=== PATIENT | male | born 1945 | race Hispanic/Latino ===

== ENCOUNTER 2017-10-21 17:07 | Observation (INO) | payer OTHER ==
[2017-10-21] MEDS ORDERED: NA CHLORIDE 0.9% 1,000 ML ONE (17:53)
[2017-10-21 18:23] LABS: Absolute Lymphocytes (CBC) 1.8 K/uL (0.7-4.9); Absolute Monocytes 0.7 K/uL (0.1-1.3); Absolute Neutrophil 8.2 K/uL (1.8-8.0); Basophils % 0.6 % (0-1.3); Eosinophils % 0.6 % (0-4.4); Hematocrit 41.2 % (39.6-49.0); Lymphocytes % 16.7 % (15.3-44.8); MCH 30.2 pg (27.0-35.0); MPV 10.8 fL (7.6-11.3); Monocytes % 6.2 % (3.3-12.3); RBC Red Blood Cell Count 4.58 M/uL (4.33-5.43)
--- NOTE | 2017-10-21 18:31 | RAD REPORT ---
EXAM DESCRIPTION: RAD - Chest Single View - 10/21/2017 6:16 pm CLINICAL HISTORY: Chest pain. COMPARISON: 09/19/2017 FINDINGS: Portable technique limits examination quality. The lungs are grossly clear. The heart is normal in size. No displaced fractures. IMPRESSION: No acute intrathoracic process suspected.
[2017-10-21 18:44] LABS: Potassium 3.6 mEq/L (3.6-5.0)
[2017-10-21 18:46] LABS: Albumin 3.9 g/dL (3.2-5.5); Bilirubin Total 0.5 mg/dL (0.3-1.2); Protein, Total 7.2 g/dL (6.0-8.3)
[2017-10-21 18:47] LABS: Magnesium 1.6 mg/dL (1.8-2.5)
--- NOTE | 2017-10-21 21:04 | EDPHYS ---
Physician Documentation [facility] Name: Tyrone Browning Age: 72 yrs Sex: Male : 1945 Arrival Date: 10/21/2017 Time: 17:19 Bed 19 Private MD: ED Physician Mayo Vargas HPI: 10/21 17:56 This 72 yrs old Male presents to ER via EMS with complaints of General ps1 Weakness and hypotension. 17:56 Patient and family report a 2 week history of fatigue and lightheadedness. He states ps1 that he is on blood pressure medications Amlodipine 5mg qd and Carvedilol 12.5 bid[address] He spoke with Dr[address] Aguilar his PCP about his symptoms and no medication modifications were made. He additionally states that he has not imprved since then . He was hypotensive on arrival and states that his symptoms of lightheadedness worsened today so he came to get checked out. No reported Headache, CP, tightness, pressure, abd pain, or urinary complaints. Attests to weightloss. . Historical: - Allergies: 19:20 No Known Allergies; ae1 - Home Meds: 19:20 glimepiride 1 mg Oral tab 1 tab once daily [Active]; clonidine HCl 0.3 mg Oral tab ae1 [Active]; citalopram 10 mg tab 1 tab once daily [Active]; losartan 25 mg oral tab [Active]; aspirin 81 mg Oral chew 1 tab once daily [Active]; amlodipine 5 mg tab 1 tab once daily [Active]; carvedilol 12.5 mg oral tab 1 tab every 12 hours [Active]; pravastatin 20 mg oral tab 1 tab once daily [Active]; - PMHx: 19:00 Hypertension; ae1 19:20 Hyperlipidemia; Diabetes - NIDDM; ae1 - Immunization history:: Adult Immunizations Flu vaccine is not up to date. - Social history:: Smoking status: Patient/guardian denies using tobacco. - Ebola Screening: : No symptoms or risks identified at this time. ROS: 17:59 Constitutional: Negative for fever, chills, and weight loss, Eyes: Negative for injury, ps1 pain, redness, and discharge, Cardiovascular: Negative for chest pain, palpitations, and edema, Respiratory: Negative for shortness of breath, cough, wheezing, and pleuritic chest pain, Abdomen/GI: Negative for abdominal pain, nausea, vomiting, diarrhea, and constipation, : Negative for injury, bleeding, discharge, and swelling, MS/Extremity: Negative for injury and deformity, Skin: Negative for injury, rash, and discoloration. 17:59 Neuro: Positive for lightheadedness. Exam: 17:59 Constitutional: This is a well developed, well nourished patient who is awake, alert, ps1 and in no acute distress. Head/Face: Normocephalic, atraumatic. Eyes: Pupils equal round and reactive to light, extra-ocular motions intact. Lids and lashes normal. Conjunctiva and sclera are non-icteric and not injected. Chest/axilla: Normal chest wall appearance and motion. Nontender with no deformity. No lesions are appreciated. Cardiovascular: Regular rate and rhythm. No gallops, murmurs, or rubs. Normal PMI, no JVD. No pulse deficits. Respiratory: Lungs have equal breath sounds bilaterally, clear to auscultation and percussion. No rales, rhonchi or wheezes noted. No increased work of breathing, no retractions or nasal flaring. Abdomen/GI: Soft, non-tender, with normal bowel sounds. No distension or tympany. No guarding or rebound. No evidence of tenderness throughout. MS/ Extremity: Pulses equal, no cyanosis. Neurovascular intact. Full, normal range of motion. Neuro: Awake and alert, GCS 15, oriented to person, place, time, and situation. Cranial nerves II-XII grossly intact. Sensory grossly intact. Vital Signs: 17:19 BP 94 / 63; Pulse 56; Resp 19; Temp 97.6(O); Pulse Ox 95% on R/A; Weight 77.11 kg (R); ae1 Pain 0/10; 18:03 BP 80 / 62 (man/); Pulse 51; Resp 14; Pulse Ox 100% on R/A; ae1 18:52 BP 105 / 58; Pulse 53; Resp 13; Pulse Ox 95% on R/A; ae1 19:21 BP 107 / 61; Pulse 57; Resp 15; Pulse Ox 99% on R/A; ae1 20:14 BP 112 / 57; Pulse 52; Resp 18; Pulse Ox 95% on R/A; Pain 0/10; ea 21:00 BP 145 / 70; Pulse 56; Resp 18; Pulse Ox 99% on R/A; Pain 0/10; ea 22:55 BP 122 / 75; Pulse 56; Resp 18; Pulse Ox 98% ; Pain 0/10; ea 23:30 BP 120 / 68; Pulse 56; Resp 18; Temp 97.8(O); Pulse Ox 99% ; Pain 0/10; ea MDM: 17:47 Patient medically screened. ps1 10/21 17:51 Order name: BNP; Complete Time: 19:10 ps1 10/21 17:51 Order name: CBC with Diff; Complete Time: 18:46 ps1 10/21 17:51 Order name: Magnesium; Complete Time: 19:10 ps1 10/21 17:51 Order name: Troponin (emerg Dept Use Only); Complete Time: 19:10 ps1 10/21 17:51 Order name: CMP; Complete Time: 19:10 ps1 10/21 18:00 Order name: TSH; Complete Time: 19:45 ps1 10/21 17:51 Order name: XRAY Chest (1 view); Complete [facility]: 18[facility] 10[facility] 21:00 Order name: Urine Dipstick--Ancillary (enter results); Complete Time: 22:39 2 10/21 21:00 Order name: Urine Microscopic Only; Complete Time: 22:39 rg2 10/21 21:08 Order name: Basic Metabolic Panel EDMS 10/21 21:08 Order name: Basic Metabolic Panel EDMS 10/21 21:08 Order name: CBC with Automated Diff EDMS 10/21 21:08 Order name: CBC with Automated Diff EDMS 04 17:51 Order name: EKG; Complete Time: 17:52 ps1 10/21 17:51 Order name: Cardiac monitoring; Complete Time: 17:59 ps1 10/21 17:51 Order name: EKG - Nurse/Tech; Complete Time: 19:05 ps1 04 17:51 Order name: IV Saline Lock; Complete Time: 17:59 ps1 04 17:51 Order name: Labs collected and sent; Complete Time: 17:59 ps1 04 17:51 Order name: O2 Per Protocol; Complete Time: 18:00 ps1 10/21 17:51 Order name: O2 Sat Monitoring; Complete Time: 18:02 ps1 10/21 17:51 Order name: Urine Dipstick-Ancillary (obtain specimen); Complete Time: 20:58 ps1 10/21 21:08 Order name: Regular EDMS Administered Medications: 18:00 Drug: NS 0.9% 1000 ml Route: IV; Rate: 1 bolus; Site: right antecubital; ae1 20:00 Follow up: Response: No adverse reaction; IV Status: Completed infusion; IV Intake: ea 1000ml Point of Care Testing: Blood Glucose: 18:03 Blood Glucose: 126 mg/dL; ae1 Ranges: Critical Glucose Levels:Adult <50 mg/dl or >400 mg/dl <40 mg/dl or >180 mg/dl Disposition: 10/21/17 21:03 Hospitalization ordered by Julio Aguilar for Inpatient Admission. Preliminary diagnosis are Hypotension, Acute Kidney Injury, Hypomagnesemia. - Bed requested for Telemetry/MedSurg (Inpatient). - Status is Inpatient Admission. ea - Condition is Stable. - Problem is new. - Symptoms have improved. UTI on Admission? No Signatures: Dispatcher [facility] Marta Carias RN RN kl Elliott, Andrea, RN RN ae1 Octavia Wilkins RN RN ea Singer, Phillip, MD MD ps1 Corrections: (The following items were deleted from the chart) 22:36 21:03 Hospitalization Ordered by A Lauren LOW for Inpatient Admission. Preliminary diagnosis is Hypotension; Acute Kidney Injury; Hypomagnesemia. Bed requested for Telemetry/MedSurg (Inpatient). Status is Inpatient Admission. Condition is Stable. Problem is new. Symptoms have improved. UTI on Admission? No. ps1 23:57 22:36 10/21/2017 21:03 Hospitalization Ordered by A Lauren LOW for Inpatient Admission. ea Preliminary diagnosis is Hypotension; Acute Kidney Injury; Hypomagnesemia. Bed requested for Telemetry/MedSurg (Inpatient). Status is Inpatient Admission. Condition is Stable. Problem is new. Symptoms have improved. UTI on Admission? No. kl
--- NOTE | 2017-10-21 21:04 | ER ---
Nurse's Notes [facility] Name: Tyrone Browning Age: 72 yrs Sex: Male : 1945 Arrival Date: 10/21/2017 Time: 17:19 Bed 19 Private MD: Diagnosis: Hypotension;Acute Kidney Injury;Hypomagnesemia Presentation: 10/21 17:21 Presenting complaint: EMS states: Patient reports generalized weakness intermittently ae1 over the last month. Transition of care: patient was not received from another setting of care. Onset of symptoms was September 17, 2017. Risk Assessment: Do you want to hurt yourself or someone else? Patient reports no desire to harm self or others. Initial Sepsis Screen: Does the patient meet any 2 criteria? No. Patient's initial sepsis screen is negative. Does the patient have a suspected source of infection? No. Patient's initial sepsis screen is negative. Care prior to arrival: EMS states upon arrival patient was hypotensive 70s over 60s and then final BP was 120s over 80s in Trendelenburg. 17:21 Method Of Arrival: EMS: [facility] ae1 17:21 Acuity: RITIKA 3 ae1 Historical: - Allergies: 19:20 No Known Allergies; ae1 - Home Meds: 19:20 glimepiride 1 mg Oral tab 1 tab once daily [Active]; clonidine HCl 0.3 mg Oral tab ae1 [Active]; citalopram 10 mg tab 1 tab once daily [Active]; losartan 25 mg oral tab [Active]; aspirin 81 mg Oral chew 1 tab once daily [Active]; amlodipine 5 mg tab 1 tab once daily [Active]; carvedilol 12.5 mg oral tab 1 tab every 12 hours [Active]; pravastatin 20 mg oral tab 1 tab once daily [Active]; - PMHx: 19:00 Hypertension; ae1 19:20 Hyperlipidemia; Diabetes - NIDDM; ae1 - Immunization history:: Adult Immunizations Flu vaccine is not up to date. - Social history:: Smoking status: Patient/guardian denies using tobacco. - Ebola Screening: : No symptoms or risks identified at this time. Screenin:02 Abuse screen: Denies threats or abuse. Nutritional screening: No deficits noted. ae1 Tuberculosis screening: No symptoms or risk factors identified. Fall Risk No fall in past 12 months (0 pts). Secondary diagnosis (15 points) hypotension . IV access (20 points). Ambulatory Aid- None/Bed Rest/Nurse Assist (0 pts). Gait- Weak (10 pts.). Mental Status- Oriented to own ability (0 pts). Assessment: 18:52 General: Appears in no apparent distress. comfortable, Behavior is calm, cooperative. ae1 Pain: Denies pain. Neuro: Level of Consciousness is awake, alert, obeys commands, Oriented to person, place, time, situation. Cardiovascular: Heart tones S1 S2 present skin is cool and dry. Respiratory: Airway is patent Respiratory effort is even, unlabored, Respiratory pattern is regular, symmetrical, Breath sounds are clear bilaterally. GI: No signs and/or symptoms were reported involving the gastrointestinal system. : No signs and/or symptoms were reported regarding the genitourinary system. EENT: No signs and/or symptoms were reported regarding the EENT system. Derm: Skin is pale. Musculoskeletal: Reports Generalized weakness. 19:10 General: Appears comfortable, Behavior is calm, cooperative. Pain: Denies pain. Neuro: ea Level of Consciousness is awake, alert, obeys commands, Oriented to person, place, time, situation. Cardiovascular: Heart tones S1 S2 present Patient's skin is warm and dry. Respiratory: Airway is patent Respiratory effort is even, unlabored, Respiratory pattern is regular, symmetrical, Breath sounds are clear bilaterally. GI: No signs and/or symptoms were reported involving the gastrointestinal system. : No signs and/or symptoms were reported regarding the genitourinary system. EENT: No signs and/or symptoms were reported regarding the EENT system. Derm: Skin is pink, warm \T\ dry. Musculoskeletal: Reports generalized weakness. 20:15 Reassessment: Patient and/or family updated on plan of care and expected duration. Pain ea level reassessed. Patient is alert, oriented x 3, equal unlabored respirations, skin warm/dry/pink. Patient states symptoms have improved. 21:50 Reassessment: Patient and/or family updated on plan of care and expected duration. Pain ea level reassessed. Patient is alert, oriented x 3, equal unlabored respirations, skin warm/dry/pink. 22:43 Reassessment: Patient and/or family updated on plan of care and expected duration. Pain ea level reassessed. Patient is alert, oriented x 3, equal unlabored respirations, skin warm/dry/pink. 23:22 Reassessment: Patient and/or family updated on plan of care and expected duration. Pain ea level reassessed. Patient is alert, oriented x 3, equal unlabored respirations, skin warm/dry/pink. Report called to receiving nurse on fourth floor. Patient states symptoms have improved. 23:40 Reassessment: Patient and/or family updated on plan of care and expected duration. Pain ea level reassessed. Patient is alert, oriented x 3, equal unlabored respirations, skin warm/dry/pink. Patient states symptoms have improved. Vital Signs: 17:19 BP 94 / 63; Pulse 56; Resp 19; Temp 97.6(O); Pulse Ox 95% on R/A; Weight 77.11 kg (R); ae1 Pain 0/10; 18:03 BP 80 / 62 (man/); Pulse 51; Resp 14; Pulse Ox 100% on R/A; ae1 18:52 BP 105 / 58; Pulse 53; Resp 13; Pulse Ox 95% on R/A; ae1 19:21 BP 107 / 61; Pulse 57; Resp 15; Pulse Ox 99% on R/A; ae1 20:14 BP 112 / 57; Pulse 52; Resp 18; Pulse Ox 95% on R/A; Pain 0/10; ea 21:00 BP 145 / 70; Pulse 56; Resp 18; Pulse Ox 99% on R/A; Pain 0/10; ea 22:55 BP 122 / 75; Pulse 56; Resp 18; Pulse Ox 98% ; Pain 0/10; ea 23:30 BP 120 / 68; Pulse 56; Resp 18; Temp 97.8(O); Pulse Ox 99% ; Pain 0/10; ea ED Course: 17:19 Patient arrived in ED. ae1 17:26 Triage completed. ae1 17:28 Mayo Vargas MD is Attending Physician. ps1 17:36 Perry Monzon RN is Primary Nurse. ae1 18:01 Inserted saline lock: 20 gauge in right antecubital area, using aseptic technique. ae1 Blood collected. 18:07 Arm band placed on right wrist. ae1 18:17 XRAY Chest (1 view) In Process Unspecified. EDMS 19:10 Patient has correct armband on for positive identification. Bed in low position. Call ea light in reach. Side rails up X2. 20:23 Primary Nurse role handed off by Perry Monzon RN rg2 20:31 Octavia Wilkins, RN is Primary Nurse. ea 21:00 Served as a diesel motor mechanic during rectal exam. aa1 21:03 Julio Aguilar MD is Hospitalizing Provider. ps1 23:23 Patient admitted, IV remains in place. ea Administered Medications: 18:00 Drug: NS 0.9% 1000 ml Route: IV; Rate: 1 bolus; Site: right antecubital; ae1 20:00 Follow up: Response: No adverse reaction; IV Status: Completed infusion; IV Intake: ea 1000ml Point of Care Testing: Blood Glucose: 18:03 Blood Glucose: 126 mg/dL; ae1 Ranges: Intake: 20:00 IV: 1000ml; Total: 1000ml. ea Outcome: 21:03 Decision to Hospitalize by Provider. ps1 21:30 Instructed on the need for admit. ea 23:22 Admitted to Med/surg accompanied by tech, via wheelchair, room 425, Report called to ea Receiving nurse on fourth floor. 23:22 Condition: stable 23:57 Patient left the ED. ea Signatures: Dispatcher [employer] EDMS David Mittal rg2 Flaca Watson RN RN aa1 Perry Monzon, RN RN ae1 Octavia Wilkins, RN Mayo Lovell ea, MD MD ps1
[2017-10-21] MEDS ORDERED: ACETAMINOPHEN 500 MG TAB PO PRN (21:06)
[2017-10-21 21:27] LABS: Urine Bacteria <20 /HPF (NONE SEEN); Urine Culture Reflex Order NOT NEEDED; Urine RBC <5 /HPF (NONE SEEN)
[2017-10-21 21:28] LABS: Urine Blood NEGATIVE (NEG); Urine Glucose NEGATIVE (NEG); Urine Protein NEGATIVE (NEG); Urine Specific Gravity <1.005 (1.005-1.030)
[2017-10-22] MEDS: NA CHLORIDE 0.9% 1,000 ML IV SCH ×2 (00:03→09:20)
[2017-10-22 00:55] VITALS: BMI 29.4
[2017-10-22 06:13] LABS: Potassium 3.1 mEq/L (3.6-5.0)
[2017-10-22 06:37] LABS: Absolute Monocytes 0.7 K/uL (0.1-1.3); Absolute Neutrophil 4.5 K/uL (1.8-8.0); Basophils % 0.6 % (0-1.3); Eosinophils % 3.2 % (0-4.4); Hematocrit 36.6 % (39.6-49.0); MCH 30.6 pg (27.0-35.0); MCV 89.3 fL (80-100); MPV 10.9 fL (7.6-11.3); Monocytes % 8.4 % (3.3-12.3)
[2017-10-22] MEDS ORDERED: MAGNESIUM SULFATE 1 gm IVPB 1 GM/100 ML BAG IV ONE (09:00)
[2017-10-22] MEDS ORDERED: ASPIRIN 81 MG CHEWABLE TABLET PO SCH (09:00)
[2017-10-22] MEDS ORDERED: CITALOPRAM 10 MG TABLET PO SCH (09:00)
[2017-10-22] MEDS ORDERED: POTASSIUM CL SA 10 MEQ TAB PO ONE ×2 (09:00→16:00)
--- NOTE | 2017-10-22 13:44 | EKG ---
Test Date: 2017-10-21 Test Time: 18:58:20 Railway Signal Operator: KEILA MEASUREMENT RESULTS: Intervals: Rate: 54 PA: 166 QRSD: 88 QT: 546 QTc: 517 [place]: P: 38 PA: 166 QRS: 37 T: 61 INTERPRETIVE STATEMENTS: Sinus bradycardia Inferior infarct, age undetermined Prolonged QT Abnormal ECG No previous ECG available for comparison Electronically Signed On 10-22-17 13:41:04 CDT by Chris Baez
[2017-10-22] MEDS ORDERED: CLONIDINE HCL 0.3 MG TAB PO ONE (19:00)
[2017-10-22 19:26] VITALS: BP 188/86
[2017-10-22 20:57] VITALS: TEMP 98.1
[2017-10-22] MEDS ORDERED: ATORVASTATIN 10 MG TAB PO SCH (21:00)
[2017-10-22 21:05] VITALS: O2SAT 96
--- NOTE | 2017-10-23 02:14 | HP ---
Date of Admission: 10/22/2017 Chief Complaint: Feeling weak and dizzy. History Of Present Illness: A 72-year-old male patient, came into emergency room as he was feeling weak and dizzy yesterday. Denies any vomiting, diarrhea. No blood in stool or blood in urine. No fever, chills. No abdominal pain. No chest pain. No shortness of breath. He has been working outside and he may not be drinking enough water. After he came into the emergency room, he was evaluated. The patient had acute volume injury with volume depletion. His stool guaiac test done in emergency room was negative. He was admitted to the hospital, 1 L of IV fluid was given in the emergency room , and then we continued to give him IV fluid hydration. This morning when I saw him, he was like his normal usual self. I saw him last week for routine office visit followup and today he was just like the way he was last week. His was with him at bedside. I have not made any changes in his medication. Last week when I saw him, he had blood work done last week on 10/16/2017 and his renal function test was normal. His LDL was slightly high around 104 or so and he takes pravastatin 20 mg daily and I have informed him today that he should increase the dose of pravastatin from 20 mg to 40 mg daily, but all his antihypertensive medication we have not changed in a long time. After he came into the ER, he was admitted to the hospital and he has not had any new complaints this morning. When I saw him last week, I did explain him importance of seeing his lmft, Dr. Brown, regularly and he told me at that time that he will think about it but he was not sure if he would do it or not and today I did bring it to his attention and his 's attention that he should see his lmft at least once a year and now he is agreeable to do so and he will schedule his appointment to see his lmft. Allergies: NO KNOWN ALLERGIES. Review of Systems: Constitutional: As mentioned above. All other systems reviewed and negative. Medications: Amlodipine 5 mg daily; aspirin 81 mg daily; carvedilol 12.5 mg 2 times a day; clonidine 0.3 mg 3 times a day; losartan 25 mg daily; citalopram 10 mg daily; glimepiride 1 mg daily; Hemocyte 1 tablet daily; pravastatin, he was on 20 mg daily and now he will increase dose to 40 mg daily. Past Medical History: Significant for hypertension, type 2 diabetes mellitus, hyperlipidemia, coronary artery disease, sleep apnea, benign prostatic hypertrophy. Past Surgical History: Significant for appendectomy. Social History: Negative for smoking or alcohol use. Family History: Significant for heart disease, hypertension, and diabetes. Physical Examination: Vital Signs: His last temperature this morning 97.1, pulse 50, respiratory rate 16, blood pressure 110/56, oxygen saturation 92%. Height 5 feet 3 inches. Weight 166 pounds. General: Awake, alert, oriented, not in distress. HEENT: Head atraumatic, normocephalic. Conjunctivae nonerythematous. Sclerae white. Mouth, no thrush or edema noted. Ears/Nose, no mass, lesion, discharge noted. Neck: Supple. No JVD, lymph nodes, bruit, thyromegaly noted. Lungs: Bilateral good equal air entry. Clear to auscultation. No rhonchi. No rales. Heart: Normal heart sounds, no murmur or gallop. Abdomen: Soft, bowel sounds normal. No guarding, rigidity, tenderness, mass, hepatosplenomegaly, distention, or bruit noted. Extremities: No leg edema. No calf tenderness. Skin: No rash, ulcer, cellulitis. Lymphatics: No lymph node enlargement in neck, supraclavicular, infraclavicular region. Neuro: No focal neurological deficit. Chest: Unremarkable. External Genitalia: Deferred. Rectal: Deferred. Laboratory Data: His creatinine was 0.68 on 10/16/2017. Yesterday, white count 10.8, hemoglobin 13.8, and platelets 251. This morning, white count 8.5, hemoglobin 12.5, platelets 205. Yesterday, sodium 132, potassium 3.6, chloride 97, bicarb 27, BUN 26, creatinine 1.57, glucose 135. This morning, BUN 24, creatinine 0.89, sodium 138, potassium 3.1. Liver function tests unremarkable. Yesterday, magnesium was 1.6. Troponin less than 0.03. TSH 2.55. Chest x-ray, no acute intrathoracic changes. Hospital Course: After I saw the patient, echocardiogram was ordered which was done, result pending. We will follow up on the result on outpatient basis. This evening, his blood pressure was elevated with systolic blood pressure anywhere between 160-170 range, so clonidine 0.3 mg was ordered p.o. x1 dose and subsequently the patient was discharged to go home with following discharge medications and instructions; 1. Continue all prior home medications. 2. Check blood pressure 3 times a day recorded and bring machine and readings to my office next week at the time of followup and the patient to follow up at my office in 1 week. 3. The patient to follow up with his lmft, Dr. Brown, in 1 to 2 weeks. 4. The patient to drink 50 to 60 ounces of water a day and avoid any outside heat exposure during this hot weather and all these instructions were explained to him by myself this morning in presence of his . The patient to continue all his prior home medications. Final Diagnoses: 1. Acute kidney injury. 2. Volume depletion. 3. Hypokalemia. 4. Hypomagnesemia. 5. Coronary artery disease. 6. Hypertension. 7. Hyperlipidemia. 8. Type 2 diabetes mellitus. 9. Sleep apnea. YAZMIN/MODL Voice ID: [id number]
--- NOTE | 2017-10-23 08:19 | ECHO ---
HEIGHT: 5 ft 3 in WEIGHT: 166 lb 0 oz DATE OF STUDY: 10/22/[address]: Elkin Aguilar MD 2-DIMENSIONAL: YES M.MODE: YES DOPPLER: YES COLOR FLOW: YES TDS: NO PORTABLE: NO DEFINITY: NO BUBBLE STUDY: NO DIAGNOSIS: CORONARY ARTERY DISEASE CARDIAC HISTORY: CATHERIZATION: NO SURGERY: NO PROSTHETIC VALVE: NO PACEMAKER: NO MEASUREMENTS (cm) DIASTOLIC (NORMALS) SYSTOLIC (NORMALS) IVSd 1.2 (0.6-1.2) LA Diam 3.5 (1.9-4.0) LVEF 69% LVIDd 4.5 (3.5-5.7) LVIDs 2.8 (2.0-3.5) %FS 39% LVPWd 1.4 (0.6-1.2) Ao Diam 2.7 (2.0-3.7) 2 DIMENSIONAL ASSESSMENT: RIGHT ATRIUM: NORMAL LEFT ATRIUM: NORMAL RIGHT VENTRICLE: NORMAL LEFT VENTRICLE: LEFT VENTRICULAR HYPERTROPHY TRICUSPID VALVE: NORMAL MITRAL VALVE: NORMAL PULMONIC VALVE: NORMAL AORTIC VALVE: NORMAL PERICARDIAL EFFUSION: NONE AORTIC ROOT: NORMAL LEFT VENTRICULAR WALL MOTION: DOPPLER/COLOR FLOW: PHYSIOLOGIC TRICUSPID REGURGITATION. NORMAL RIGHT VENTRICULAR SYSTOLIC PRESSURE. IMPAIRED LEFT VENTRICULAR RELAXATION. COMMENTS: NORMAL LEFT VENTRICULAR EJECTION FRACTION. LEFT VENTRICULAR HYPERTROPHY. IMPAIRED LEFT VENTRICULAR RELAXATION. TECHNOLOGIST: Yudelka PEREZ
== END 2017-10-22 21:00 | disposition home or self-care (01) ==
LOC: ER 17:07 → SUPCPDRO 17:07 → 4TH 22:45 → INTOOBSV 22:45
PROVIDERS: ADMIT Internal Medicine; ATTEND Internal Medicine
DX: N17.9 Acute kidney failure, unspecified (principal); E86.9 Volume depletion, unspecified; E87.6 Hypokalemia; E83.42 Hypomagnesemia; G47.30 Sleep apnea, unspecified; I10 Essential (primary) hypertension; E11.9 Type 2 diabetes mellitus without complications; E78.5 Hyperlipidemia, unspecified; I25.10 Atherosclerotic heart disease of native coronary artery without angina pectoris; N40.0 Benign prostatic hyperplasia without lower urinary tract symptoms; Z79.82 Long term (current) use of aspirin
CPT/HCPCS: 36415; 71045; 80048; 80053; 81003; 81015; 82962; 83735; 83880; 84132; 84443; 84484; 85025; 93005; 93306; 96360; 96361; 97163; 99285; G0378; J3475; J7030

== ENCOUNTER 2018-05-12 11:36 | Observation (INO) | payer OTHER ==
--- OUTSIDE RECORDS SUMMARY | 2018-05-12 11:38 | XMS REPORT ---
:1945 [facility] Address [address] [place] [address] Dr. Polk [address] [place] [id number] Care Team Providers Name Role Phone Unavailable Unavailable Unavailable Problems This patient has no known problems. Allergies, Adverse Reactions, Alerts This patient has no known allergies or adverse reactions. Medications This patient has no known medications.
--- NOTE | 2018-05-12 12:07 | RAD REPORT ---
EXAM DESCRIPTION: RAD - Chest Single View - 05/12/2018 12:02 pm CLINICAL HISTORY: Weakness, shortness of breath COMPARISON: October 21 TECHNIQUE: AP portable chest image was obtained 1145 hours . FINDINGS: Lung volumes are low. Perihilar markings are within normal limits. Lung markings are not s ubstantially different from comparison. No peripheral consolidation or mass. Heart and vasculature are normal. No measurable pleural effusion and no pneumothorax. No acute bony abnormality seen. No acute aortic findings suspected. IMPRESSION: No acute cardiopulmonary process. Chest findings are not substantially different in comparison.
[2018-05-12 12:26] LABS: Absolute Lymphocytes (CBC) 1.8 K/uL (0.7-4.9); Absolute Neutrophil 6.6 K/uL (1.8-8.0); Basophils % 0.4 % (0-1.3); Eosinophils % 0.1 % (0-4.4); Hematocrit 42.7 % (39.6-49.0); Lymphocytes % 18.7 % (15.3-44.8); MPV 10.8 fL (7.6-11.3); Monocytes % 10.7 % (3.3-12.3); RBC Red Blood Cell Count 4.75 M/uL (4.33-5.43)
[2018-05-12 12:28] LABS: Protime INR 1.29
[2018-05-12 12:41] LABS: Albumin 3.2 g/dL (3.4-5.0); Bilirubin Direct 0.2 mg/dL (0-0.2); Bilirubin Total 0.5 mg/dL (0.2-1.0); Magnesium 2.2 mg/dL (1.8-2.4); Potassium 3.5 mmol/L (3.5-5.1); Protein, Total 7.3 g/dL (6.4-8.2); Troponin (Emerg Dept Use Only) 0.09 ng/mL (0.0-0.045)
--- NOTE | 2018-05-12 13:33 | ER ---
Nurse's Notes [facility] Name: Tyrone Browning Age: 73 yrs Sex: Male : 1945 Arrival Date: 05/12/2018 Time: 11:38 Bed 2 Private MD: Diagnosis: Hypotension Presentation: 05/12 11:38 Presenting complaint: EMS states: Pt c/o generalized weakness since this morning, BP on ph scene 70s/40s, hx of HTN, reports taking medications this morning, also dx w/ shingles approx 3 days ago at [facility] and sent home w/ 3 prescriptions. Transition of care: patient was not received from another setting of care. Onset of symptoms was May 12, 2018. Risk Assessment: Do you want to hurt yourself or someone else? Patient reports no desire to harm self or others. Initial Sepsis Screen: Does the patient meet any 2 criteria? Systolic BP < 90 mmHg. Mean Arterial Pressure (MAP) < 65. Yes Does the patient have a suspected source of infection? Yes: Skin breakdown/wound. Care prior to arrival: Medication(s) given: Normal saline infusion, 150 mL IV initiated. 20 GA, in the left antecubital area, Glucose check: 276. 11:38 Method Of Arrival: EMS: [facility] ph 11:38 Acuity: RITIKA 2 ph Historical: - Allergies: 11:48 No Known Drug Allergies; ph - Home Meds: 11:48 amlodipine 5 mg tab 1 tab once daily [Active]; ph 11:58 aspirin 81 mg Oral chew 1 tab once daily [Active]; clonidine HCl 0.3 mg Oral tab 1 tab ph three times a day [Active]; carvedilol 12.5 mg Oral tab 1 tab every 12 hours [Active]; losartan 25 mg Oral tab 1 tab once daily [Active]; glimepiride 1 mg Oral tab 1 tab once daily [Active]; citalopram 10 mg tab 1 tab once daily [Active]; pravastatin 40 mg oral tab [Active]; terbinafine HCl 250 mg oral tab 1 tab once daily [Active]; valacyclovir 1 gram Oral tab 1 tab 3 times per day [Active]; - PMHx: 11:48 Diabetes - NIDDM; Hyperlipidemia; Hypertension; ph - Immunization history:: Adult Immunizations unknown. - Social history:: Smoking status: Patient/guardian denies using tobacco. - Ebola Screening: : No symptoms or risks identified at this time. Screenin:06 Abuse screen: Denies threats or abuse. Denies injuries from another. Nutritional ph screening: No deficits noted. Tuberculosis screening: No symptoms or risk factors identified. Fall Risk No fall in past 12 months (0 pts). No secondary diagnosis (0 pts). IV access (20 points). Ambulatory Aid- None/Bed Rest/Nurse Assist (0 pts). Gait- Weak (10 pts.). Mental Status- Oriented to own ability (0 pts). Total Foster Fall Scale indicates Low Risk Score (25-44 pts). Fall prevention measures have been instituted. Side Rails Up X 2 Frequent Obs/Assesments occuring Family Present and informed to notify staff if they need to leave bedside As available Patient and Family Educated on Fall Prevention Program and strategies. Assessment: 12:00 General: Appears in no apparent distress. uncomfortable, well groomed, Behavior is ph cooperative, drowsy, quiet, Denies fever, feeling ill. Pain: Denies pain. Neuro: Level of Consciousness is awake, obeys commands, lethargic, Oriented to person, place, time, situation, Reports weakness in "all over" Denies blurred vision difficulty swallowing, headache. Cardiovascular: Reports fatigue, lightheadedness, Denies chest pain, nausea, shortness of breath, Capillary refill < 3 seconds in bilateral fingers Patient's skin is warm and dry. Respiratory: Airway is patent Respiratory effort is even, unlabored, Respiratory pattern is regular, symmetrical. GI: No signs and/or symptoms were reported involving the gastrointestinal system. Patient currently denies abdominal pain, diarrhea, nausea, vomiting. EENT: swelling noted to nati eyelids. Derm: Skin is healthy with good turgor, Skin is pink, warm \\T\\ dry. Rash noted that is red, vesicular, on forehead, nose and left eye pt recently dx w/ shingles. Musculoskeletal: Circulation, motion, and sensation intact. Range of motion: intact in all extremities. 12:05 Reassessment: Patient appears in no apparent distress at this time. Pt noted to be ph taking BP medications x 4, states that pt took all of his usual medications this morning. 13:30 Reassessment: Patient appears in no apparent distress at this time. No changes from ph previously documented assessment. Patient and/or family updated on plan of care and expected duration. Pain level reassessed. 14:32 Reassessment: Patient appears in no apparent distress at this time. No changes from ph previously documented assessment. Patient and/or family updated on plan of care and expected duration. Pain level reassessed. Patient is alert, oriented x 3, equal unlabored respirations, skin warm/dry/pink. at bedside, awaiting room assignment. 15:35 Reassessment: Patient appears in no apparent distress at this time. Patient and/or ph family updated on plan of care and expected duration. Pain level reassessed. Pt appears to be sleeping w/ eyes closed and equal unlabored respirations, at bedside requesting to speak to ERP, states, " He is just so sleepy and that isn't normal for him." VSS,CT head ordered by ERP. 16:05 Reassessment: Patient appears in no apparent distress at this time. Patient and/or ph family updated on plan of care and expected duration. Pain level reassessed. Dr Mayo at bedside to speak w/ pt, pt responding appropriately to providers questions, oriented x 4. 17:00 Reassessment: Patient appears in no apparent distress at this time. Patient and/or ph family updated on plan of care and expected duration. Pain level reassessed. 17:50 Reassessment: Patient appears in no apparent distress at this time. Patient and/or ph family updated on plan of care and expected duration. Pain level reassessed. Patient is alert, oriented x 3, equal unlabored respirations, skin warm/dry/pink. Report called to NADIA Yoon, pt taken to 4th floor via stretcher. Vital Signs: 11:43 BP 83 / 59; Pulse 53; Resp 18; Temp 97.1(TE); Pulse Ox 97% on R/A; Weight 77.11 kg; ph Height 5 ft. 3 in. (160.02 cm); Pain 0/10; 12:00 BP 117 / 70; Pulse 57; ph 12:30 BP 113 / 64; Pulse 49; Resp 16; Pulse Ox 97% on R/A; ph 12:58 BP 117 / 63; Pulse 51; Resp 18; Pulse Ox 97% ; ph 13:30 BP 111 / 62; Pulse 53; Resp 18; Pulse Ox 98% on R/A; ph 14:00 BP 115 / 68; Pulse 55; Resp 16; Pulse Ox 97% on R/A; ph 14:29 BP 100 / 67; Pulse 54; Resp 18; Pulse Ox 96% on R/A; ph 15:48 BP 117 / 65; Pulse 54; Resp 18; Pulse Ox 98% on R/A; ph 17:09 BP 136 / 71; Pulse 54; Resp 12; Temp 97.9; Pulse Ox 94% on R/A; ph 17:55 BP 127 / 67; Pulse 56; Resp 18; Temp 97.5; Pulse Ox 95% on R/A; ph 11:43 Body Mass Index 30.11 (77.11 kg, 160.02 cm) ph ED Course: 11:38 Patient arrived in ED. ph 11:38 Lory Lovelace MD is Attending Physician. ma2 11:43 Triage completed. ph 11:43 Lonny Gonzales PA is PHCP. jr8 11:43 Morgan Valencia MD is Attending Physician. jr8 11:59 Gail Santiago, NADIA is Primary Nurse. ph 12:01 EKG done, by manager technical training. reviewed by Lonny JOYA. at1 12:04 XRAY Chest (1 view) In Process Unspecified. EDMS 12:04 Arm band placed on. ph 12:06 Patient has correct armband on for positive identification. Bed in low position. Call ph light in reach. Side rails up X2. nurse monitoring on. Pulse ox on. NIBP on. Warm blanket given. 12:11 Maintain EMS IV. Dressing intact. Good blood return noted. Site clean \\T\\ dry. Gauge \\T\\ ph site: 20 LAC. 12:43 Notified ED physician of a critical lab result(s). lac 2.3 Notified Nurse Practitioner ss and/or Physician Teasel Setter of a critical lab result(s), lac 2.3. 13:33 Shey Mayo MD is Hospitalizing Provider. jr8 16:31 CT completed. Patient tolerated procedure well. Patient moved to CT via stretcher. ky Patient moved back from CT. 17:48 No provider procedures requiring assistance completed. Patient admitted, IV remains in ph place. Administered Medications: 12:00 Drug: NS 0.9% 1000 ml Route: IV; Rate: 1000 ml; Site: left antecubital; ph 12:45 Follow up: Response: No adverse reaction; Blood pressure is elevated; IV Status: ph Completed infusion Outcome: 13:33 Decision to Hospitalize by Provider. carmelina 17:49 Admitted to Tele family with patient, via stretcher, room 431, with chart, Report ph called to Karrie ZUNIGA 17:49 Condition: stable 17:49 Instructed on the need for admit. 17:56 Patient left the ED. ph Signatures: Dispatcher [employer] Deysi Moreno RN RN Lonny Gonzales PA PA jr8 Priti Ramirez, registry rn EKG Tat1 Gail Santiago RN RN Derik Justice Mohammad, MD MD ma2
--- NOTE | 2018-05-12 13:34 | EDPHYS ---
Physician Documentation [facility] Name: Tyrone Browning Age: 73 yrs Sex: Male : 1945 Arrival Date: 05/12/2018 Time: 11:38 Bed 2 Private MD: ED Physician Morgan Valencia HPI: 05/12 13:33 This 73 yrs old Male presents to ER via EMS with complaints of General jr8 Weakness. 13:33 Onset: The symptoms/episode began/occurred acutely, today. Associated signs and jr8 symptoms: The patient has no apparent associated signs or symptoms. Modifying factors: The patient symptoms are alleviated by nothing, the patient symptoms are aggravated by activity. The patient has not experienced similar symptoms in the past. The patient has been recently seen by a physician: with different complaint(s). Historical: - Allergies: 11:48 No Known Drug Allergies; ph - Home Meds: 11:48 amlodipine 5 mg tab 1 tab once daily [Active]; ph 11:58 aspirin 81 mg Oral chew 1 tab once daily [Active]; clonidine HCl 0.3 mg Oral tab 1 tab ph three times a day [Active]; carvedilol 12.5 mg Oral tab 1 tab every 12 hours [Active]; losartan 25 mg Oral tab 1 tab once daily [Active]; glimepiride 1 mg Oral tab 1 tab once daily [Active]; citalopram 10 mg tab 1 tab once daily [Active]; pravastatin 40 mg oral tab [Active]; terbinafine HCl 250 mg oral tab 1 tab once daily [Active]; valacyclovir 1 gram Oral tab 1 tab 3 times per day [Active]; - PMHx: 11:48 Diabetes - NIDDM; Hyperlipidemia; Hypertension; ph - Immunization history:: Adult Immunizations unknown. - Social history:: Smoking status: Patient/guardian denies using tobacco. - Ebola Screening: : No symptoms or risks identified at this time. ROS: 13:33 Eyes: Negative for injury, pain, redness, and discharge, ENT: Negative for injury, jr8 pain, and discharge, Neck: Negative for injury, pain, and swelling, Cardiovascular: Negative for chest pain, palpitations, and edema, Respiratory: Negative for shortness of breath, cough, wheezing, and pleuritic chest pain, Abdomen/GI: Negative for abdominal pain, nausea, vomiting, diarrhea, and constipation, Back: Negative for injury and pain, MS/Extremity: Negative for injury and deformity, Skin: Negative for injury, rash, and discoloration. 13:33 Constitutional: Positive for fatigue. 13:33 Neuro: Positive for weakness, Negative for altered mental status, dizziness, headache, loss of consciousness, numbness, seizure activity, syncope. Exam: 13:33 Eyes: Pupils equal round and reactive to light, extra-ocular motions intact. Lids and jr8 lashes normal. Conjunctiva and sclera are non-icteric but injected on left side. Cornea within normal limits. Periorbital areas with no swelling, redness, or edema. ENT: Nares patent. No nasal discharge, no septal abnormalities noted. Tympanic membranes are normal and external auditory canals are clear. Oropharynx with no redness, swelling, or masses, exudates, or evidence of obstruction, uvula midline. Mucous membranes moist. Neck: Trachea midline, no thyromegaly or masses palpated, and no cervical lymphadenopathy. Supple, full range of motion without nuchal rigidity, or vertebral point tenderness. No Meningismus. Cardiovascular: Regular rate and rhythm with a normal S1 and S2. No gallops, murmurs, or rubs. Normal PMI, no JVD. No pulse deficits. Respiratory: Lungs have equal breath sounds bilaterally, clear to auscultation and percussion. No rales, rhonchi or wheezes noted. No increased work of breathing, no retractions or nasal flaring. Abdomen/GI: Soft, non-tender, with normal bowel sounds. No distension or tympany. No guarding or rebound. No evidence of tenderness throughout. Back: No spinal tenderness. No costovertebral tenderness. Full range of motion. Skin: Warm, dry with normal turgor. Normal color vesicular rash to left forehead MS/ Extremity: Pulses equal, no cyanosis. Neurovascular intact. Full, normal range of motion. Neuro: Awake and alert, GCS 15, oriented to person, place, time, and situation. Cranial nerves II-XII grossly intact. Motor strength 5/5 in all extremities. Sensory grossly intact. Cerebellar exam normal. Normal gait. Vital Signs: 11:43 BP 83 / 59; Pulse 53; Resp 18; Temp 97.1(TE); Pulse Ox 97% on R/A; Weight 77.11 kg; ph Height 5 ft. 3 in. (160.02 cm); Pain 0/10; 12:00 BP 117 / 70; Pulse 57; ph 12:30 BP 113 / 64; Pulse 49; Resp 16; Pulse Ox 97% on R/A; ph 12:58 BP 117 / 63; Pulse 51; Resp 18; Pulse Ox 97% ; ph 13:30 BP 111 / 62; Pulse 53; Resp 18; Pulse Ox 98% on R/A; ph 14:00 BP 115 / 68; Pulse 55; Resp 16; Pulse Ox 97% on R/A; ph 14:29 BP 100 / 67; Pulse 54; Resp 18; Pulse Ox 96% on R/A; ph 15:48 BP 117 / 65; Pulse 54; Resp 18; Pulse Ox 98% on R/A; ph 17:09 BP 136 / 71; Pulse 54; Resp 12; Temp 97.9; Pulse Ox 94% on R/A; ph 17:55 BP 127 / 67; Pulse 56; Resp 18; Temp 97.5; Pulse Ox 95% on R/A; ph 11:43 Body Mass Index 30.11 (77.11 kg, 160.02 cm) ph MDM: 11:38 Patient medically screened. dc2 13:32 Data reviewed: vital signs, nurses notes, lab test result(s), EKG, radiologic studies, jr8 plain films. Data interpreted: Pulse oximetry: on room air is 97 %. Interpretation: normal. Counseling: I had a detailed discussion with the patient and/or guardian regarding: the historical points, exam findings, and any diagnostic results supporting the discharge/admit diagnosis, lab results, radiology results, the need for further work-up and treatment in the hospital. Physician consultation: Shey Mayo MD was called at 13:32, was contacted at 13:32, regarding admission, to the telemetry unit. consult, patient's condition, and will see patient in ED. 05/12 11:43 Order name: Basic Metabolic Panel; Complete Time: 12:45 jr8 05/12 11:43 Order name: CBC with Diff; Complete Time: 12:45 jr8 05/12 11:43 Order name: LFT's; Complete Time: 12:45 jr8 05/12 11:43 Order name: Magnesium; Complete Time: 12:45 jr8 05/12 11:43 Order name: NT PRO-BNP; Complete Time: 12:45 [facility] 05/12 11:43 Order name: PT-INR; Complete Time: 12:45 [facility] 05/12 11:43 Order name: Troponin (emerg Dept Use Only); Complete Time: 12:45 [facility] 05/12 11:43 Order name: XRAY Chest (1 view); Complete Time: 12:08 [facility] 05/12 11:43 Order name: Blood Culture Adult (2) [facility] 05/12 11:43 Order name: Lactate; Complete Time: 12:45 [facility] 05/12 16:13 Order name: CT Head Brain wo Cont [facility] 05/12 16:41 Order name: CT; Complete Time: 16:52 [facility] 05/12 17:46 Order name: Lactate Sepsis 2 HR Follow-up [facility] 05/12 11:43 Order name: EKG; Complete Time: 11:44 [facility] 05/12 11:43 Order name: Cardiac monitoring; Complete Time: 14:33 [facility] 05/12 11:43 Order name: EKG - Nurse/Tech; Complete Time: 14:33 [facility] 05/12 11:43 Order name: IV Saline Lock; Complete Time: 14:33 [facility] 05/12 11:43 Order name: Labs collected and sent; Complete Time: 14:33 [facility] 05/12 11:43 Order name: O2 Per Protocol; Complete Time: 14:33 [facility] 05/12 11:43 Order name: O2 Sat Monitoring; Complete Time: 14:33 [facility] Administered Medications: 12:00 Drug: NS 0.9% 1000 ml Route: IV; Rate: 1000 ml; Site: left antecubital; ph 12:45 Follow up: Response: No adverse reaction; Blood pressure is elevated; IV Status: ph Completed infusion Disposition: 05/12/18 13:33 Hospitalization ordered by Shey Mayo for Observation. Preliminary diagnosis is Hypotension. - Bed requested for Telemetry/MedSurg (observation). - Status is Observation. ph - Condition is Stable. - Problem is new. - Symptoms have improved. UTI on Admission? No Addendum: 05/20/2018 11:27 Co-signature as Attending Physician, Morgan Valencia MD I agree with the assessment and c elizondo plan of care. Signatures: Dispatcher [employer] [facility] Alissa Elizalde RN RN dw Morgan Valencia MD MD cha Roszak, Josh, PA PA jr8 Gail Santiago, NADIA RN ph Lory Lovelace MD MD ma2 Corrections: (The following items were deleted from the chart) 05/12 16:54 13:33 Hospitalization Ordered by Shey Mayo MD for Observation. Preliminary diagnosis dw is Hypotension. Bed requested for Telemetry/MedSurg (observation). Status is Observation. Condition is Stable. Problem is new. Symptoms have improved. UTI on Admission? No. jr8 17:56 16:54 05/12/2018 13:33 Hospitalization Ordered by Shey Mayo MD for Observation. ph Preliminary diagnosis is Hypotension. Bed requested for Telemetry/MedSurg (observation). Status is Observation. Condition is Stable. Problem is new. Symptoms have improved. UTI on Admission? No. dw
--- NOTE | 2018-05-12 14:45 | EKG ---
Test Date: 2018-05-12 Test Time: 11:55:23 Epidemiology Internship: [facility] MEASUREMENT RESULTS: Intervals: Rate: 52 TX: 172 QRSD: 86 QT: 472 QTc: 438 Erwin: P: 39 TX: 172 QRS: 41 T: 65 INTERPRETIVE STATEMENTS: Sinus bradycardia Inferior infarct, age undetermined Abnormal ECG Compared to ECG 10/21/2017 18:58:20 Prolonged QT interval no longer present Myocardial infarct finding still present Electronically Signed On 05-12-18 14:44:10 SPECIALIST PHYSICIAN by Chris Baez
[2018-05-12] MEDS ORDERED: NA CHLORIDE 0.9% 500 ML ONE (15:28)
--- NOTE | 2018-05-12 16:41 | RAD REPORT ---
EXAM DESCRIPTION: CT - Head Brain Wo Cont - 05/12/2018 4:32 pm CLINICAL HISTORY: Alteration of consciousness/memory loss COMPARISON: September 2016 TECHNIQUE: Computed axial tomography of the head was obtained. IV contrast was not requested. All CT scans are performed using dose optimization technique as appropriate and may include automated exposure control or mA/KV adjustment according to patient size. FINDINGS: An intracranial bleed is not seen . The ventricles are normal in caliber. No extra-axial fluid collection is noted. Mild low-density areas within periventricular, deep and sub cortical white matter likely represent ischemic changes secondary to small vessel disease. Fluid within the sinuses/ mastoids is not seen. IMPRESSION: No acute intracranial abnormality is seen. If patient's symptoms persist MRI of the bra in would be recommended.
[2018-05-12] MEDS ORDERED: GLUCAGON 1 MG/VIAL IM PRN (18:05)
[2018-05-12] MEDS ORDERED: D50W 25 GM/50 ML SYRINGE IV PRN (18:05)
--- NOTE | 2018-05-12 18:07 | P.HP ---
Patient History Date of Service: 05/12/18 Reason for admission: Generalized weakness, lethargy History of Present Illness: This is a 73-year-old male with a recent diagnosis of zoster on the left side of the face and my admitted for generalized lethargy, weakness. He he recently started valacyclovir and the eyedrops 2 days ago for shingles. Per since yesterday he has been very weak, sleeping a lot more in the ED, his blood pressure was in the 80s systolic, he was given IV fluids and responded well. At the time of my exam, patient was sleepy, though arousable. He answered questions properly, he was oriented x4, just very sleepy. He was in no acute distress. Allergies No Known Drug Allergies Allergy (Verified 10/22/17 00:28) Unknown Home Medications: Amlodipine [Norvasc*] 5 mg PO DAILY 10/22/17 Aspirin 81 mg PO DAILY 10/22/17 Carvedilol 12.5 mg PO BID 10/22/17 Citalopram [Celexa*] 10 mg PO DAILY 10/22/17 Glimepiride 1 mg PO DAILY 10/22/17 Losartan Potassium 25 g PO DAILY 10/22/17 Pravastatin Sodium 40 mg PO DAILY 10/22/17 cloNIDine HCl [Catapres*] 0.3 mg PO TID 10/22/17 Terbinafine HCl [Lamisil] 250 mg PO DAILY 05/12/18 Valacyclovir HCl [Valtrex] 1,000 mg PO TID 05/12/18 - Past Medical/Surgical History Diabetic: Yes -: HTN -: Hyperlipedemia -: Heart Attack 1997 -: NIDDM -: Appendectomy - Family History Sisters -: Cancer - Social History Alcohol use: Yes CD- Drugs: No Caffeine use: Yes Review of Systems 10-point ROS is otherwise unremarkable Physical Examination - Physical Exam General: Alert, In no apparent distress, Other (Sleepy, but arousable. Able to answer all questions properly. Oriented x4) HEENT: Atraumatic, PERRLA, Mucous membr. moist/pink, Other (Rash on left side of the face, near left eye and forehead. Consistent with shingles), EOMI, Sclerae nonicteric Neck: Supple, 2+ carotid pulse no bruit, No LAD, Without JVD or thyroid abnormality Respiratory: Clear to auscultation bilaterally, Normal air movement Cardiovascular: Regular rate/rhythm, Normal S1 S2 Gastrointestinal: Normal bowel sounds, No tenderness Musculoskeletal: No tenderness Integumentary: No rashes Neurological: Normal gait, Normal speech, Normal strength at 5/5 x4 extr, Normal tone, Normal affect Lymphatics: No axilla or inguinal lymphadenopathy - Studies Laboratory Data (last 24 hrs) 05/12/18 12:10: PT 15.3 H, INR 1.29 05/12/18 12:10: WBC 9.4, Hgb 14.7, Hct 42.7, Plt Count 213 05/12/18 12:10: Sodium 137, Potassium 3.5, BUN 13, Creatinine 1.27, Glucose 198 H, Magnesium 2.2, Total Bilirubin 0.5, AST 14 L, ALT 31, Alkaline Phosphatase 80 Assessment and Plan - Problems (Diagnosis) (1) Generalized weakness Current Visit: Yes Status: Acute (2) Shingles Current Visit: Yes Status: Acute Qualifiers: 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 ocular complication detail: unspecified herpes zoster eye disease Qualified Code(s): 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 transplanted heart: [place] heart Associated angina: without angina Qualified Code(s): I25.10 - Atherosclerotic heart disease of [place] coronary artery without angina pectoris (6) Diabetes mellitus type 2, controlled, without complications Current Visit: Yes Status: Chronic Qualifiers: Diabetes mellitus assisted insulin use: without long line teamster use Qualified Code(s): E11.9 - Type 2 diabetes mellitus without complications (7) Elevated lactic acid level Current Visit: Yes Status: Acute - Plan This is a 73-year-old male with: Generalized weakness (Acute) R53.1 Unsure of etiology. Chest x-ray negative for any acute abnormalities CT head negative for anything acute. On exam: Patient alert and oriented x4 just very sleepy. Does not seem confused in any way. Elevated lactate (Acute 05/12/18) Not septic. Afebrile, vital signs now stable, no white count. Patient was hypertensive on admission, responded well to fluids. Continue monitoring via vital signs. Blood cultures pending Hypotension (Acute 10/22/17) I95.9 Now resolved, blood pressure improved. Continue to monitor Shingles (Acute) B02.9 Initially, I thought confusion and generalized weakness could be secondary to valacyclovir. Per exam, patient not confused or altered mentation xiong in any way. Will continue bowel acyclovir for shingles rash. Place patient on contact isolation Pain control Hypertension (Chronic) I10 Will hold home blood pressure medications this patient was hypotensive on admission. Will restart as needed Hyperlipidemia (Chronic) E78.5 Stable, continue home statin CAD (coronary artery disease) (Chronic) I25.10 Elevated troponins, will trend. Likely secondary to dehydration Denies any chest pain at this time. Diabetes mellitus type 2, controlled, without complications (Chronic) E11.9 Accu-Cheks and mild sliding scale. Will adjust as needed DVT prophylaxis: Lovenox GI prophylaxis: Not needed Diet: Heart healthy Disposition: Admit to floor on tele for observation. Pending symptomatic improvement. - Advance Directives Does patient have a Living Will: Yes Does patient have a Durable POA for Healthcare: Yes Physician Review: Patient Assessed, Agree with Above Assessment and Plan Time Spent Managing Pts Care (In Minutes): 55
[2018-05-12 18:32] VITALS: BMI 29.7
[2018-05-12] MEDS: INSULIN -REGULAR HUMAN 50 UNIT/0.5 ML ML SQ SCH (20:24)
[2018-05-12 20:25] LABS: Urine Appearance CLOUDY; Urine Bilirubin NEGATIVE (NEG); Urine Blood NEGATIVE (NEG); Urine Color YELLOW; Urine Glucose NEGATIVE (NEG); Urine Protein 1+ (NEG); Urine Specific Gravity 1.015 (1.005-1.030); Urine pH 6.5 (5.0-7.0)
[2018-05-12] MEDS: VALACYCLOVIR 500 MG TAB PO SCH (20:25)
[2018-05-12 20:41] LABS: Urine Microscopic Reflex ORDER UMIC
[2018-05-12] MEDS ORDERED: ATORVASTATIN 10 MG TAB PO SCH (21:00)
[2018-05-12 21:03] LABS: Urine Bacteria <20 /HPF (NONE SEEN); Urine Culture Reflex Order NOT NEEDED; Urine RBC <5 /HPF (NONE SEEN)
[2018-05-12 21:04] LABS: Urine Amorphous Sediment 1+ /HPF (NONE SEEN)
[2018-05-13] MEDS: ACETAMINOPHEN 500 MG TAB PO PRN ×2 (02:00→09:25)
[2018-05-13 05:13] LABS: Absolute Lymphocytes (CBC) 2.1 K/uL (0.7-4.9); Absolute Monocytes 1.3 K/uL (0.1-1.3); Absolute Neutrophil 5.7 K/uL (1.8-8.0); Basophils % 0.6 % (0-1.3); Eosinophils % 0.4 % (0-4.4); Hematocrit 40.4 % (39.6-49.0); Lymphocytes % 22.7 % (15.3-44.8); MPV 10.5 fL (7.6-11.3); Monocytes % 13.9 % (3.3-12.3); RBC Red Blood Cell Count 4.53 M/uL (4.33-5.43)
[2018-05-13 05:32] LABS: ALT/SGPT 26 U/L (12-78); AST/SGOT 14 U/L (15-37); Albumin 3.1 g/dL (3.4-5.0); Alkaline Phosphatase 70 U/L (45-117); BUN Blood Urea Nitrogen 15 mg/dL (7-18); Bicarbonate 28 mmol/L (21-32); Bilirubin Total 0.5 mg/dL (0.2-1.0); Glucose Level 110 mg/dL (74-106); Protein, Total 7.1 g/dL (6.4-8.2); Sodium Level 138 mmol/L (136-145)
[2018-05-13] MEDS ORDERED: POTASSIUM CL SA 10 MEQ TAB PO ONE (05:57)
[2018-05-13] MEDS: INSULIN -REGULAR HUMAN 50 UNIT/0.5 ML ML SQ SCH ×2 (07:30→11:30)
[2018-05-13 08:15] VITALS: O2SAT 94
[2018-05-13] MEDS ORDERED: CITALOPRAM 10 MG TABLET PO SCH (09:00)
[2018-05-13] MEDS ORDERED: ASPIRIN 81 MG CHEWABLE TABLET PO SCH (09:00)
[2018-05-13] MEDS ORDERED: ENOXAPARIN 40 MG/0.4 ML SQ SCH (09:00)
[2018-05-13] MEDS ORDERED: TERBINAFINE HCL 250 MG TAB PO SCH (09:00)
[2018-05-13] MEDS: VALACYCLOVIR 500 MG TAB PO SCH (09:26)
[2018-05-13] MEDS ORDERED: HYDRALAZINE HCL 20 MG/ML VIAL IV ONE (10:15)
[2018-05-13] MEDS ORDERED: CARVEDILOL 12.5 MG TAB PO SCH (11:00)
[2018-05-13] MEDS ORDERED: LOSARTAN POTASSIUM 50 MG TABLET PO SCH (11:00)
[2018-05-13 11:56] VITALS: BP 165/80
[2018-05-13 12:03] VITALS: TEMP 101.1
[2018-05-13] MEDS ORDERED: VALACYCLOVIR HCL 1000 MG PO SCH (14:00)
[2018-05-13] MEDS ORDERED: VALACYCLOVIR 500 MG TAB PO SCH (14:00)
[2018-05-13] MEDS ORDERED: CLONIDINE HCL 0.3 MG TAB PO SCH (14:00)
--- NOTE | 2018-05-13 15:59 | DS ---
Date of Discharge: 05/13/2018 Discharge Diagnoses: 1. ? Sepsis. 2. Generalized weakness. 3. Shingles. 4. Hypertension. 5. Hyperlipidemia. 6. Coronary artery disease. 7. Diabetes mellitus. Consults: None. Procedure: Head CT was negative yesterday. Chest x-ray negative was yesterday. History Of Present Illness: Please refer to Dr. Mayo note from yesterday. Hospital Course: Initially, the patient presented with generalized weakness, fatigue and found to have a low blood pressure with systolic blood pressure around 80s. He was started on IV fluid and responded well to that. He also had extensive rash on his left-sided face, which was diagnosed zoster previously and was started on valacyclovir and eyedrops by primary care physician. Today, blood pressure improved, but patient continues spiking fever and I was planning to start him on IV antibiotics. While culture is still pending but the refused as well as the patient demanded to go home. Immediately, I explained to the patient that I am not comfortable with discharging him home because I am worried that he may go septic and I think he will need IV antibiotic, but she refused and she said, she will give him Tylenol and she signed AMA and left. So, there was no discharge instruction. Discharge medication and discharge followup arranged, but I strongly advised that the patient followup with his primary care physician tomorrow to make sure his blood pressure is well and maybe they need to reduce his blood pressure medication dose and follow up within his blood culture results and make sure he is not positive. Again, the patient and his understand the risk of sepsis and , but they leaving anyway AMA. Discharge Physical Examination: Latest Vital Signs: Blood pressure is 165/80, respiratory rate 16, pulse 70, temperature 101.1. General: The patient is alert and oriented x3. Does not look in any distress. HEENT: Atraumatic and normocephalic. PERRLA. There is rash on the left side of face near the left eye and forehead, drying up, but there is no discharge or oozing. Neck: Supple. No JVD. Chest: Clear to auscultation with good air entry. Heart: Regular rate and rhythm. S1 and S2 normal. No gallop or murmur. Abdomen: Soft, nontender. No masses. No hepatosplenomegaly. Positive bowel sounds. Extremities: No clubbing, cyanosis, or edema. No calf tenderness. Neurologic: Grossly intact. There is no further discharge instructions as patient left AMA. DICKSON/SHAWNA Voice ID: [id number] Report ID: [id number] MTDD
[2018-05-14] MEDS ORDERED: GLIMEPIRIDE 2 MG TABLET PO SCH (08:00)
[2018-05-14] MEDS ORDERED: HOME MED 1 EA UNK (Glimepiride [Glimepiride] 1 MG) PO SCH (09:00)
[2018-05-14] MEDS ORDERED: AMLODIPINE 5 MG TAB PO SCH (09:00)
[2018-05-14] MEDS ORDERED: LOSARTAN POTASSIUM PO SCH (09:00)
== END 2018-05-13 15:02 | disposition left against medical advice (07) ==
LOC: ER 11:36 → ERHOLD 13:57 → 4TH 17:49
PROVIDERS: ADMIT Family Medicine; ATTEND Family Medicine
DX: R53.1 Weakness (principal); B02.9 Zoster without complications; I10 Essential (primary) hypertension; E78.5 Hyperlipidemia, unspecified; I25.10 Atherosclerotic heart disease of native coronary artery without angina pectoris; E11.9 Type 2 diabetes mellitus without complications
CPT/HCPCS: 36415; 70450; 71045; 80048; 80053; 80076; 82962 ×4; 83605 ×2; 83735; 83880; 84132; 84484 ×2; 85025 ×2; 85610; 87040 ×2; 93005; 94760 ×3; 96360; 99285; G0378 ×2; J0360; J1650; 81003; 81015

== ENCOUNTER 2021-02-22 13:51 | Emergency (ER) | payer OTHER ==
--- NOTE | 2021-02-22 15:03 | RAD REPORT ---
EXAM DESCRIPTION: RAD - Chest Single View - 02/22/2021 2:33 pm CLINICAL HISTORY: COUGH Chest pain. COMPARISON: Chest Pa And Lat (2 Views) dated 02/16/2019; Chest Single View dated 05/12/2018; Chest Si ngle View dated 10/21/2017; Chest Pa And Lat (2 Views) dated 09/19/2017 FINDINGS: Portable technique limits examination quality. Mild bilateral interstitial lung opacities are noted, raising suspicion of a viral infection or bronc hitis. The heart is normal in size. No displaced fractures.
[2021-02-22] MEDS ORDERED: NA CHLORIDE 0.9% 1,000 ML ONE (15:13)
[2021-02-22 15:15] LABS: Absolute Lymphocytes (CBC) 1.4 K/uL (0.7-4.9); Basophils % 0.7 % (0-1.3); Hematocrit 36.6 % (39.6-49.0); Lymphocytes % 12.2 % (15.3-44.8); MPV 9.9 fL (7.6-11.3); RBC Red Blood Cell Count 4.26 M/uL (4.33-5.43)
[2021-02-22 15:16] LABS: Protime INR 1.21
[2021-02-22 15:59] LABS: Albumin 3.3 g/dL (3.4-5.0); Bilirubin Direct 0.1 mg/dL (0-0.2); Bilirubin Total 0.4 mg/dL (0.2-1.0); Magnesium 1.7 mg/dL (1.8-2.4); Protein, Total 6.9 g/dL (6.4-8.2); Troponin (Emerg Dept Use Only) 0.09 ng/mL (0.0-0.045)
--- NOTE | 2021-02-22 16:02 | ER ---
Nurse's Notes [facility] Name: Tyrone Browning Age: 76 yrs Sex: Male : 1945 Arrival Date: 02/22/2021 Time: 13:57 Bed 13 Private MD: Diagnosis: Weakness;Hypotension, unspecified-resolved;Dizziness and giddiness Presentation: 02/22 14:04 Chief complaint: EMS states: pt reports low BP at home , 70's systolic , was seen at [facility] clinic today with Dr. Kaplan. Coronavirus screen: At this time, the client does not indicate any symptoms associated with coronavirus-19. Ebola Screen: Patient negative for fever greater than or equal to 101.5 degrees Fahrenheit, and additional compatible Ebola Virus Disease symptoms Patient denies exposure to infectious person. Patient denies travel to an Ebola-affected area in the 21 days before illness onset. No symptoms or risks identified at this time. Onset of symptoms was February 22, 2021. 14:04 Method Of Arrival: EMS: [facility] 14:04 Acuity: RITIKA 2 iw 15:15 Initial Sepsis Screen: Does the patient meet any 2 criteria? No. Patient's initial es2 sepsis screen is negative. Does the patient have a suspected source of infection? No. Patient's initial sepsis screen is negative. 15:15 Risk Assessment: Do you want to hurt yourself or someone else? Patient reports no es2 desire to harm self or others. Triage Assessment: 15:16 General: Appears well groomed, well developed, well nourished, Behavior is calm, es2 cooperative, appropriate for age. Pain: Denies pain. Historical: - Home Meds: 16:50 amlodipine 5 mg tab 1 tab once daily [Active]; citalopram 10 mg tab 1 tab once daily es2 [Active]; glimepiride 1 mg Oral tab 1 tab once daily [Active]; losartan 25 mg Oral tab 1 tab once daily [Active]; clonidine HCl 0.3 mg Oral tab 1 tab three times a day [Active]; pravastatin 40 mg Oral tab [Active]; carvedilol 12.5 mg Oral tab 1 tab every 12 hours [Active]; terbinafine HCl 250 mg Oral tab 1 tab once daily [Active]; valacyclovir 1 gram Oral tab 1 tab 3 times per day [Active]; aspirin 81 mg Oral chew 1 tab once daily [Active]; - Immunization history:: Adult Immunizations up to date. - Social history:: Smoking status: Patient/guardian denies using. - Family history:: not pertinent. Screenin:15 Abuse screen: Denies threats or abuse. Denies injuries from another. Nutritional es2 screening: No deficits noted. Tuberculosis screening: No symptoms or risk factors identified. Fall Risk IV access (20 points). Mental Status- Oriented to own ability (0 pts). Assessment: 15:17 General: Appears well groomed, well developed, well nourished, Behavior is calm, es2 cooperative, appropriate for age. Pain: Denies pain. Neuro: Level of Consciousness is awake, alert, obeys commands, Oriented to person, place, time, situation, Appropriate for age. Cardiovascular: Capillary refill < 3 seconds Patient's skin is warm and dry. Respiratory: Airway is patent Respiratory effort is even, Respiratory pattern is regular, symmetrical. GI: No signs and/or symptoms were reported involving the gastrointestinal system. : No signs and/or symptoms were reported regarding the genitourinary system. EENT: No signs and/or symptoms were reported regarding the EENT system. Derm: No signs and/or symptoms reported regarding the dermatologic system. Musculoskeletal: No signs and/or symptoms reported regarding the musculoskeletal system. Vital Signs: 14:25 BP 88 / 46; Pulse 52; Resp 16; Pulse Ox 96% on R/A; iw 15:18 BP 119 / 63; Pulse 54; Resp 17; Pulse Ox 97% on R/A; es2 15:49 BP 118 / 65 LA Supine (auto/reg); Pulse 57; es2 15:49 BP 120 / 65 LA Sitting (auto/reg); Pulse 54; es2 15:49 BP 112 / 61 LA Standing (auto/reg); Pulse 60; es2 16:50 BP 110 / 67; Pulse 61; es2 ED Course: 13:57 Patient arrived in ED. iw 14:08 Triage completed. iw 14:14 Morgan Valencia MD is Attending Physician. melinda 14:33 XRAY Chest (1 view) In Process Unspecified. EDMS 14:43 Holley Swift RN is Primary Nurse. es2 15:07 Lipase Sent. es2 15:07 Basic Metabolic Panel Sent. es2 15:07 CBC with Diff Sent. es2 15:07 LFT's Sent. es2 15:07 NT PRO-BNP Sent. es2 15:07 Magnesium Sent. es2 15:07 Troponin (emerg Dept Use Only) Sent. es2 15:07 PT-INR Sent. es2 15:14 No provider procedures requiring assistance completed. Inserted saline lock: 20 gauge es2 in right antecubital area, using aseptic technique. Blood collected. 15:15 Arm band placed on. es2 15:15 Patient has correct armband on for positive identification. Bed in low position. Call es2 light in reach. Side rails up X 1. 16:07 Chris Baez MD is Referral Physician. melinda 16:49 IV discontinued, intact, bleeding controlled, No redness/swelling at site. Pressure es2 dressing applied. Administered Medications: 14:52 Drug: NS 0.9% 1000 ml Route: IV; Rate: 1 bolus; Site: left antecubital; es2 16:51 Follow up: Response: No adverse reaction; IV Status: Completed infusion es2 Outcome: 16:01 Discharge ordered by . melinda 16:50 Discharged to home via wheelchair. es2 16:50 Condition: stable 16:50 Discharge instructions given to patient, significant other, Instructed on discharge instructions, Demonstrated understanding of instructions. 16:52 Patient left the ED. es2 Signatures: Dispatcher [employer] Morgan Woodard MD MD cha Williams, Irene, RN RN iw Smith, Elizabeth, RN RN es2
--- NOTE | 2021-02-22 16:02 | EDPHYS ---
Physician Documentation [facility] Name: Tyrone Browning Age: 76 yrs Sex: Male : 1945 Arrival Date: 02/22/2021 Time: 13:57 Bed 13 Private MD: ED Physician Morgan Valencia HPI: 02/22 15:55 This 76 yrs old Male presents to ER via EMS with complaints of General melinda Weakness, Dizziness. 15:55 The patient presents with dizziness, generalized weakness. Onset: The symptoms/episode melinda began/occurred just prior to arrival. Context: occurred at home, occurred while the patient was standing. Modifying factors: The symptoms are alleviated by nothing, the symptoms are aggravated by standing up. Associated signs and symptoms: Pertinent positives: nausea. Severity of symptoms: At their worst the symptoms were mild in the emergency department the symptoms are unchanged. Patient's baseline: Neuro: alert and fully oriented. The patient has not experienced similar symptoms in the past. Historical: - Home Meds: 16:50 amlodipine 5 mg tab 1 tab once daily [Active]; citalopram 10 mg tab 1 tab once daily es2 [Active]; glimepiride 1 mg Oral tab 1 tab once daily [Active]; losartan 25 mg Oral tab 1 tab once daily [Active]; clonidine HCl 0.3 mg Oral tab 1 tab three times a day [Active]; pravastatin 40 mg Oral tab [Active]; carvedilol 12.5 mg Oral tab 1 tab every 12 hours [Active]; terbinafine HCl 250 mg Oral tab 1 tab once daily [Active]; valacyclovir 1 gram Oral tab 1 tab 3 times per day [Active]; aspirin 81 mg Oral chew 1 tab once daily [Active]; - Immunization history:: Adult Immunizations up to date. - Social history:: Smoking status: Patient/guardian denies using. - Family history:: not pertinent. ROS: 15:55 Constitutional: Negative for fever, chills, and weight loss, Eyes: Negative for injury, melinda pain, redness, and discharge, ENT: Negative for injury, pain, and discharge, Neck: Negative for injury, pain, and swelling, Cardiovascular: Negative for chest pain, palpitations, and edema, Respiratory: Negative for shortness of breath, cough, wheezing, and pleuritic chest pain, Abdomen/GI: Negative for abdominal pain, nausea, vomiting, diarrhea, and constipation, Back: Negative for injury and pain, : Negative for injury, bleeding, discharge, and swelling, MS/Extremity: Negative for injury and deformity, Skin: Negative for injury, rash, and discoloration, Psych: Negative for depression, anxiety, suicide ideation, homicidal ideation, and hallucinations, Allergy/Immunology: Negative for hives, rash, and allergies, Endocrine: Negative for neck swelling, polydipsia, polyuria, polyphagia, and marked weight changes, Hematologic/Lymphatic: Negative for swollen nodes, abnormal bleeding, and unusual bruising. 15:55 Neuro: Positive for weakness. Exam: 15:55 Constitutional: This is a well developed, well nourished patient who is awake, alert, melinda and in no acute distress. Head/Face: Normocephalic, atraumatic. Eyes: Pupils equal round and reactive to light, extra-ocular motions intact. Lids and lashes normal. Conjunctiva and sclera are non-icteric and not injected. Cornea within normal limits. Periorbital areas with no swelling, redness, or edema. ENT: Nares patent. No nasal discharge, no septal abnormalities noted. Tympanic membranes are normal and external auditory canals are clear. Oropharynx with no redness, swelling, or masses, exudates, or evidence of obstruction, uvula midline. Mucous membranes moist. Neck: Trachea midline, no thyromegaly or masses palpated, and no cervical lymphadenopathy. Supple, full range of motion without nuchal rigidity, or vertebral point tenderness. No Meningismus. Chest/axilla: Normal chest wall appearance and motion. Nontender with no deformity. No lesions are appreciated. Cardiovascular: Regular rate and rhythm with a normal S1 and S2. No gallops, murmurs, or rubs. Normal PMI, no JVD. No pulse deficits. Respiratory: Lungs have equal breath sounds bilaterally, clear to auscultation and percussion. No rales, rhonchi or wheezes noted. No increased work of breathing, no retractions or nasal flaring. Abdomen/GI: Soft, non-tender, with normal bowel sounds. No distension or tympany. No guarding or rebound. No evidence of tenderness throughout. Back: No spinal tenderness. No costovertebral tenderness. Full range of motion. Male : Normal genitalia with no discharge or lesions. Skin: Warm, dry with normal turgor. Normal color with no rashes, no lesions, and no evidence of cellulitis. MS/ Extremity: Pulses equal, no cyanosis. Neurovascular intact. Full, normal range of motion. Neuro: Awake and alert, GCS 15, oriented to person, place, time, and situation. Cranial nerves II-XII grossly intact. Motor strength 5/5 in all extremities. Sensory grossly intact. Cerebellar exam normal. Normal gait. Psych: Awake, alert, with orientation to person, place and time. Behavior, mood, and affect are within normal limits. 16:26 ECG was reviewed by the Attending Physician. melinda Vital Signs: 14:25 BP 88 / 46; Pulse 52; Resp 16; Pulse Ox 96% on R/A; iw 15:18 BP 119 / 63; Pulse 54; Resp 17; Pulse Ox 97% on R/A; es2 15:49 BP 118 / 65 LA Supine (auto/reg); Pulse 57; es2 15:49 BP 120 / 65 LA Sitting (auto/reg); Pulse 54; es2 15:49 BP 112 / 61 LA Standing (auto/reg); Pulse 60; es2 16:50 BP 110 / 67; Pulse 61; es2 MDM: 14:14 Patient medically screened. melinda 15:57 Differential diagnosis: cardiac arrhythmia, CVA, generalized weakness, hypovolemia, melinda near-syncope. Data reviewed: vital signs, nurses notes, lab test result(s), EKG, radiologic studies, CT scan, plain films. Data interpreted: quality assurance monitor final: rate is 60 beats/min, rhythm is Pulse oximetry: on room air is 97 %. Test interpretation: by ED physician or midlevel provider: ECG, plain radiologic studies. Counseling: I had a detailed discussion with the patient and/or guardian regarding: the historical points, exam findings, and any diagnostic results supporting the discharge/admit diagnosis, lab results, radiology results, the need for outpatient follow up, for definitive care, a cane furniture maker, a family practitioner. 02/22 14:15 Order name: Basic Metabolic Panel [facility] 02/22 14:15 Order name: CBC with Diff; Complete Time: 15:46 melinda 02/22 14:15 Order name: LFT's melinda 02/22 14:15 Order name: Magnesium melinda 02/22 14:15 Order name: NT PRO-BNP [facility] 02/22 14:15 Order name: PT-INR; Complete Time: 15:46 [facility] 02/22 14:15 Order name: Troponin (emerg Dept Use Only) [facility] 02/22 14:15 Order name: XRAY Chest (1 view); Complete Time: 15:46 [facility] 02/22 14:15 Order name: EKG; Complete Time: 14:15 [facility] 02/22 14:15 Order name: Cardiac monitoring [facility] 02/22 14:15 Order name: Lipase [facility] 02/22 15:48 Order name: COVID-19 : Document "Date of Symptom Onset" if Symptomatic. [facility] 02/22 14:15 Order name: IV Saline Lock; Complete Time: 14:52 [facility] 02/22 14:15 Order name: Labs collected and sent; Complete Time: 15:07 [facility] 02/22 14:15 Order name: O2 Per Protocol; Complete Time: 14:22 [facility] 02/22 14:15 Order name: O2 Sat Monitoring; Complete Time: 14:22 [facility] 02/22 15:55 Order name: PO challenge; Complete Time: 16:48 [facility] EC:26 Rate is 56 beats/min. Rhythm is regular. QRS [place] is Normal. VT interval is normal. QRS melinda interval is normal. QT interval is normal. Q waves are Present in leads II, III, aVF. T waves are Normal. No ST changes noted. Clinical impression: Abnormal EKG without significant change and No evidence of ischemia. Interpreted by me. Reviewed by me. Administered Medications: 14:52 Drug: NS 0.9% 1000 ml Route: IV; Rate: 1 bolus; Site: left antecubital; es2 16:51 Follow up: Response: No adverse reaction; IV Status: Completed infusion es2 Disposition Summary: 02/22/21 16:01 Discharge Ordered Location: Home melinda Problem: new melinda Symptoms: have improved melinda Condition: Stable melinda Diagnosis - Weakness melinda - Hypotension, unspecified - resolved melinda - Dizziness and giddiness melinda Followup: melinda - With: Private Physician - When: 1 - 2 days - Reason: Recheck today's complaints, Continuance of care, Re-evaluation by your physician Followup: melinda - With: Chris Baez MD - When: 2 - 3 days - Reason: Recheck today's complaints, Continuance of care, Re-evaluation by your physician Discharge Instructions: - Discharge Summary Sheet melinda - Dizziness melinda - Hypotension melinda - Weakness melinda - Near-Syncope, [id number] melinda - Hypotension, [id number] melinda - Weakness, [id number] melinda - Dizziness, [id number] melinda Forms: - Medication Reconciliation Form melinda - Thank You Letter melinda - Antibiotic Education melinda - Prescription Opioid Use melinda Signatures: Dispatcher [employer] EDMorgan Byers MD MD cha Smith, Elizabeth RN RN es2
[2021-02-22 16:10] LABS: Potassium 2.8 mmol/L (3.5-5.1)
[2021-02-22 16:58] VITALS: O2SAT 97
[2021-02-22 17:00] VITALS: BP 110/67
== END 2021-02-22 16:52 | disposition home or self-care (01) ==
LOC: ER 13:51
DX: R42 Dizziness and giddiness (principal); Z79.82 Long term (current) use of aspirin
CPT/HCPCS: 96361; 93005; 85025; 80048; 36415; 83735; 85610; 80076; 84484; 83690; 83880; 71045; 96360; 99284; J7030